=== PATIENT | male | born 1990 | race Asian ===

== ENCOUNTER 2021-10-29 21:50 | Emergency (ER) | payer OTHER, SELFPAY ==
--- NOTE | 2021-10-29 07:24 | ECG_ITS ---
Test Reason : CHEST PAIN Blood Pressure : / mmHG Vent. Rate : 107 BPM Atrial Rate : 107 BPM P-R Int : 118 ms QRS Dur : 074 ms QT Int : 306 ms P-R-T Axes : 055 041 036 degrees QTc Int : 408 ms Sinus tachycardia Otherwise normal ECG No previous ECGs available Referred By: Heri Skinner Electronically Signed By:Arslan Gottlieb
[2021-10-29 22:06] VITALS: BP 136/81; PULSE 110; RESP 20; TEMP 37.4; O2SAT 100; BMI 24.4
[2021-10-29 22:24] LABS: MANUAL DIFF FLAG NO
[2021-10-29 22:26] LABS: Basophils Percent Auto 0.2 % (0-2); Eosinophils Absolute Auto 0.2 X10*3/uL (0.0-0.4); Hematocrit 38.4 % (42.0-52.0); Hemoglobin 12.4 g/dl (14.0-18.0); Imm Gran Abs Auto 0.12 X10*3/uL (0.00-0.03); Imm Gran Pct Auto 0.7 % (0.0-0.4); Lymphocytes Absolute Auto 2.3 X10*3/uL (1.2-4.9); Lymphocytes Percent Auto 13.8 % (20-40); Mean Corpuscular HGB Conc 32.3 g/dl (31.0-36.0); Mean Corpuscular Hemoglobin 28.1 pg (27.0-33.0); Mean Corpuscular Volume 87.1 fL (80.0-98.0); Mean Platelet Volume 8.8 fL (9.4-12.4); Monocytes Absolute Auto 1.1 X10*3/uL (0.1-1.2); Monocytes Percent Auto 6.6 % (2-11); Neutrophils Absolute Auto 12.8 x10*3/uL (2.0-8.3); Neutrophils Percent Auto 77.7 % (45-73); Platelet Count 449 X10*3/uL (160-400); Red Blood Count 4.41 X10*6/uL (4.60-5.80); Red Cell Distribution Width 12.9 % (11.0-16.0); White Blood Count 16.5 X10*3/uL (4.8-10.8)
[2021-10-29 22:39] LABS: Anion Gap 14 (12-20); Blood Urea Nitrogen 11 mg/dL (9-16); Calcium 8.6 mg/dL (8.4-10.2); Carbon Dioxide 24 mmol/L (22-29); Chloride 99 mmol/L (96-108); Creatinine Clr Calc Pharmacy 153.3; Estimated Glomerular Filt Rate > 60; Glucose Random 106 mg/dL (60-115); Potassium 4.2 mmol/L (3.3-5.1); Sodium 133 mmol/L (135-145)
[2021-10-29 22:47] LABS: Troponin-I High Sensitivity < 3.5 ng/L (<3.5-35.0)
[2021-10-29 23:14] LABS: D Dimer High Sensitivity 1528 NG/ML
--- NOTE | 2021-10-29 23:34 | ED.GENADULT ---
HPI - General Adult General Chief complaint: General Medical Stated complaint: pain in chest and joints Time Seen by Provider: 10/29/21 23:34 Source: patient and family (Father) Mode of arrival: ambulatory Limitations: no limitations History of Present Illness HPI narrative: 31 years old male came in for evaluation of migratory joint pain starting an left knee to the right knee then alternate to the wrist and elbows, patient also felt left-sided chest pain since yesterday. Patient was seen at [facility] patient had CTA angio of the chest because elevated D-dimer and was negative for PE. Patient was discharged yesterday around oxycodone which he claimed is not relieving his pain. Related Data Previous Rx's Medication Instructions Recorded ibuprofen 800 mg tablet 800 mg PO Q8H PRN pain #30 tabs 10/29/21 prednisone 20 mg tablet 20 mg PO BID #8 tabs 10/29/21 Allergies Allergy/AdvReac Type Severity Reaction Status Date / Time No Known Allergies Allergy Verified 10/29/21 22:12 Review of Systems Review of Systems: All other systems are reviewed and are negative Constitutional: Reports as per HPI and Reports no additional constitutional complaints Eyes: Reports as per HPI and Reports no additional eye complaints Reports system reviewed and no additional complaints, except as documented Cardiovascular: Reports as per HPI and Reports no additional cardiovascular complaints Respiratory: Reports as per HPI and Reports no additional respiratory complaints Gastrointestinal: Reports as per HPI and Reports no additional gastrointestinal complaints Genitourinary: Reports no additional female genitourinary complaints Musculoskeletal: Reports no additional musculoskeletal complaints Skin/Breast: Reports system reviewed and no additional complaints, except as docu Psychiatric: Reports no additional psychiatric complaints Endocrine: Reports no additional endocrine complaints Hematologic/Lymphatic: Reports no additional hematologic/lymphatic complaints Allergic/Immunologic: Reports no additional allergic/immunologic complaints Reports system reviewed and no additional complaints, except as documented and Reports Abnormal speech present [facility] Social History Social History Advance Directives: No Advance Directives Information Provided: Yes Physical Exam ED Vital Signs: Vital Signs - 24 hr 10/29/21 22:06 Temperature 99.4 F Pulse Rate 110 H Respiratory Rate 20 Blood Pressure 136/81 Pulse Oximetry 100 Oxygen Delivery Method Room Air BMI result Body Mass Index 24.4 Vital signs have been reviewed as appeared to be correct. Blood pressure normal. Heart rate normal. Respiration rate normal. Temperature normal. Oxygen saturation normal. Appearance: Alert. Oriented X3. No acute distress. Head: Normal external exam. Normocephalic. Atraumatic. No Benjamin signs noted. No raccoon eyes noted Eyes: PERRLA. EOMI. Conjunctiva and sclera normal. Eyelids normal. ENT: TM's Normal. Pharynx normal. Uvula midline. Moist mucous membranes. No trismus noted. No drooling noted. No muffled voice noted. Neck: Normal inspection. Neck supple. FROM. No adenopathy. Thyroid Normal. No meningeal signs. No neck mass noted. CVS: Normal heart rate and rhythm. Heart sound normal. No murmurs noted. Pulses normal throughout. Respiratory: No respiratory distress. Painless inspiration. Breath sounds normal. No wheezes/rales/rhonchi noted. Chest nontender. No accessory muscle usage noted or decreased air movement noted. Abdomen: Soft and nontender. Bowel sounds normal in all 4 quadrants. No distention noted. No organomegaly noted. No visible injury noted. Back: No CVA tenderness. Full range of motion noted. Skin: Skin warm and dry. Normal skin color. Normal skin turgor. No rashes/lesions/lacerations noted. Extremities: No lower extremity edema. Extremities exhibit normal range of motion. Extremities nontender. Neuro: Oriented X 3. Cranial nerve exam: II-XII are grossly intact No motor deficit. No sensory deficit. Reflexes normal. Course Course Course Narrative: Assessment and plan. 31-year-old male came in for evaluation of chest pain and migratory joint pain. Was seen and evaluated at [facility] yesterday had CT angiogram of the chest due to D-dimer elevation showed no PE. EKG/troponin unremarkable. Joint pain is likely secondary to arthritis will start the patient on ibuprofen and short course of prednisone. Medical Decision Making Lab Data Lab results reviewed: Yes I reviewed the patient's lab results. Result diagrams: 10/29/21 22:18 10/29/21 22:18 Labs: Lab Results 10/29/21 10/29/21 10/29/21 Range/Units 22:18 22:18 22:18 WBC 16.5 H (4.8-10.8) X10*3/uL RBC 4.41 L (4.60-5.80) X10*6/uL Hgb 12.4 L (14.0-18.0) g/dl Hct 38.4 L (42.0-52.0) % MCV 87.1 (80.0-98.0) fL MCH 28.1 (27.0-33.0) pg MCHC 32.3 (31.0-36.0) g/dl RDW 12.9 (11.0-16.0) % Plt Count 449 H (160-400) X10*3/uL MPV 8.8 L (9.4-12.4) fL Immature Gran % (Auto) 0.7 H (0.0-0.4) % Neut % (Auto) 77.7 H (45-73) % Lymph % (Auto) 13.8 L (20-40) % [place] % (Auto) 6.6 (2-11) % Eos % (Auto) 1.0 (0-4) % Baso % (Auto) 0.2 (0-2) % Lymph # (Auto) 2.3 (1.2-4.9) X10*3/uL [place] # (Auto) 1.1 (0.1-1.2) X10*3/uL Eos # (Auto) 0.2 (0.0-0.4) X10*3/uL Baso # (Auto) 0.0 (0.0-0.2) X10*3/uL Abs Immat Gran (auto) 0.12 H (0.00-0.03) X10*3/uL Absolute Neuts (auto) 12.8 H (2.0-8.3) x10*3/uL Absolute Nucleated RBC 0.000 (0.0-0.012) X10*3/uL Nucleated RBC % (auto) 0.0 (0.0-0.2) /100WBC D-Dimer High Sensitivty 1528 NG/ML Sodium 133 L (135-145) mmol/L Potassium 4.2 (3.3-5.1) mmol/L Chloride 99 (96-108) mmol/L Carbon Dioxide 24 (22-29) mmol/L Anion Gap 14 (12-20) BUN 11 (9-16) mg/dL Creatinine 0.75 (0.5-1.4) mg/dL Estim Creat Clear Calc 153.3 Estimated GFR > 60 Random Glucose 106 (60-115) mg/dL Calcium 8.6 (8.4-10.2) mg/dL Troponin I High Sens (<3.5-35.0) ng/L 10/29/21 Range/Units 22:18 WBC (4.8-10.8) X10*3/uL RBC (4.60-5.80) X10*6/uL Hgb (14.0-18.0) g/dl Hct (42.0-52.0) % MCV (80.0-98.0) fL MCH (27.0-33.0) pg MCHC (31.0-36.0) g/dl RDW (11.0-16.0) % Plt Count (160-400) X10*3/uL MPV (9.4-12.4) fL Immature Gran % (Auto) (0.0-0.4) % Neut % (Auto) (45-73) % Lymph % (Auto) (20-40) % [place] % (Auto) (2-11) % Eos % (Auto) (0-4) % Baso % (Auto) (0-2) % Lymph # (Auto) (1.2-4.9) X10*3/uL [place] # (Auto) (0.1-1.2) X10*3/uL Eos # (Auto) (0.0-0.4) X10*3/uL Baso # (Auto) (0.0-0.2) X10*3/uL Abs Immat Gran (auto) (0.00-0.03) X10*3/uL Absolute Neuts (auto) (2.0-8.3) x10*3/uL Absolute Nucleated RBC (0.0-0.012) X10*3/uL Nucleated RBC % (auto) (0.0-0.2) /100WBC D-Dimer High Sensitivty NG/ML Sodium (135-145) mmol/L Potassium (3.3-5.1) mmol/L Chloride (96-108) mmol/L Carbon Dioxide (22-29) mmol/L Anion Gap (12-20) BUN (9-16) mg/dL Creatinine (0.5-1.4) mg/dL Estim Creat Clear Calc Estimated GFR Random Glucose (60-115) mg/dL Calcium (8.4-10.2) mg/dL Troponin I High Sens < 3.5 (<3.5-35.0) ng/L Discharge Plan Discharge Clinical Impression: Arthritis Patient Disposition: Home, Self-Care Instructions: Osteoarthritis (ED) Prescriptions: New ibuprofen 800 mg tablet 800 mg PO Q8H PRN (Reason: pain) Qty: 30 0RF prednisone 20 mg tablet 20 mg PO BID Qty: 8 0RF Referrals: Physician,Unknown J [Primary Care Provider] -
[2021-10-29 23:44] VITALS: BP 112/72; PULSE 108; RESP 18; TEMP 39.6; O2SAT 99
[2021-10-29] MEDS: predniSONE 20 MG TABLET 60 MG PO (23:48)
[2021-10-29] MEDS: Ibuprofen 800 MG TABLET PO (23:48)
[2021-10-30 00:05] VITALS: TEMP 38.2
== END 2021-10-30 00:12 | disposition home or self-care (01) ==
PROVIDERS: Emergency Provider Emergency Medicine
DX: R07.89 Other chest pain (principal); M17.0 Bilateral primary osteoarthritis of knee; Z79.899 Other long term (current) drug therapy
CPT/HCPCS: 36415; 80048; 84484; 85025; 85379; 93005; 99283; 99284

== ENCOUNTER 2024-10-25 14:23 | Outpatient (AMB) | payer OTHER, SELFPAY ==
--- NOTE | 2024-10-25 14:34 | A.OFFVIS_ITS ---
Intake Visit Reasons: Penile lesion/hematoma Intake Note: Patient is present for PENILE LESION/HEMATOMA Urology Medication:NONE Antibiotic Allergy:NONE Blood Thinner:NONE Airport Utility Worker Required: No Allergies No Known Allergies Allergy (Verified 10/25/24 14:35) HPI Comments Details: Holly Is a pleasant male of [place]. 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 Review of Systems Const Denies chills and Denies fever(s) Card Reports no additional complaints and Denies syncope Resp Denies cough GI Denies abdominal pain and Denies heartburn Reports as per HPI and Denies change in libido Neuro Denies syncope Psych Denies change in libido Endo Denies change in libido Physical Exam Const General: cooperative, healthy appearing, comfortable and no acute distress Orientation/consciousness: patient oriented x3 HEENT Face and sinus: Yes normal facial exam Mouth: moist mucous membranes Neck Neck: Yes normal visual inspection, Yes full ROM and Yes trachea midline Chest Chest palpation & inspection: normal inspection of the chest Resp Effort & Inspection: normal respiratory effort, able to speak in complete sentences and no respiratory distress GI Inspection: Yes normal to inspection Back/Spine/Pelvis Cervical Spine: normal cervical lordosis Thoracic/Lumbar Spine: thoracic and lumbar spine normal to inspection Skin General skin exam: no rashes or lesions noted Neuro General: patient oriented x3, gait normal, tone normal and moves all extremities Extrem General: Yes normal to inspection and Yes capillary refill normal Results AMB Urinalysis, Automated UA Leukoctes 0 Joan/uL Last Edit by SERENITY Raymond on 10/25/24 15:21 UA Nitrite Negative Last Edit by SERENITY Raymond on 10/25/24 15:21 UA Urobilinogen 0.2 mg/dL Last Edit by SERENITY Raymond on 10/25/24 15:2 1 UA Protein 0 mg/dL Last Edit by SERENITY Raymond on 10/25/24 15:21 UA pH 6.0 Last Edit by SERENITY Raymond on 10/25/24 15:21 UA Blood 10 Chidi/uL Last Edit by SERENITY Raymond on 10/25/24 15:21 UA Specific [place] 1.015 Last Edit by SERENITY Raymodn on 10/25/24 15: 21 UA Ketone Negative Last Edit by SERENITY Raymond on 10/25/24 15:21 UA Bilirubin 0 mg/dL Last Edit by SERENITY Raymond on 10/25/24 15:21 UA Glucose 0 mg/dL Last Edit by SERENITY Raymond on 10/25/24 15:21 Results Reviewed Results Reviewed: Laboratory Last Values Urine pH (Auto) 6.0 10/25/24 15:20 Specific [place] (Auto) 1.015 10/25/24 15:20 Urine Protein (Auto) 0 mg/dL 10/25/24 15:20 Glucose (UA)(Auto) 0 mg/dL 10/25/24 15:20 Urine Ketones (Auto) Negative 10/25/24 15:20 Urine Blood (Auto) 10 Chidi/uL 10/25/24 15:20 Urine Nitrite (Auto) Negative 10/25/24 15:20 Urine Bilirubin (Auto) 0 mg/dL 10/25/24 15:20 Urine Urobilinogen (Auto) 0.2 mg/dL 10/25/24 15:20 Leukocyte Esterase (Auto) 0 Joan/uL 10/25/24 15:20 Assessment & Plan Assessment & Plan (1) Balanitis: Code(s): N48.1 - Balanitis Category: Medical Plan Trial topical steroid Orders: Orders AMB Urinalysis Automated Today Z13.9 - Encounter for screening, unspecified Medications: New betamethasone dipropionate 0.05% Thin coat 2 times per day 1 appl topical BID 30 days 15 grams 0RF N48.1 - Balanitis, Q55.69 - Other congenital malformation of penis Patient Instructions: This note is constructed using voice recognition software. While every effort has been made to ensure accuracy paper novelty maker errors may have been included. Imaging studies, laboratory and physical exam results were discussed and reviewed in detail. No major barriers to patient understanding were identified. An opportunity to ask questions regarding the treatment plan was provided. All questions were answered. The patient expressed understanding and agreement with the above treatment plan. The patient is aware they should contact our office by phone for worsening of their current condition or the appearance of new urologic symptoms. Compliance is encouraged with any medications and followup testing that is ordered. It is a privilege to participate in the urologic care of your patient. If you have any questions or concerns regarding treatment for the above conditions, or other urologic issues, please do not hesitate to contact me. The office telephone contact is [phone]. Sincerely, Dr Lalo Singh MD, [facility] - Urology Compassionate Specialist Care for the Genitourinary System Coding Level of Care Code New Pt Level 4 (32962) Diagnoses Balanitis N48.1
--- OUTSIDE RECORDS SUMMARY | 2024-10-25 14:48 | XMS_ITS | Clinical Summary ---
Author Organization [facility] Address [address] [place] [address] Phone Care Team Providers Care [employer] Name Role Phone Caitlyn Gooden MD Primary Care Provider + Active Problems Problem Noted Date Diagnosed Date History of benign schwannoma 09/18/2024 Assessment & Plan (09/18/2024 8:52 PM EDT): Mr. Christian is a 44 y.o. male had a robotic resection of a posterior mediastinal mass with pathology consistent with a schwannoma in November 2021. The patient's most recent surveillance CT scan shows no evidence of recurrent mediastinal or paraspinal mass. He has no concerning pulmonary nodules or thoracic adenopathy. Will plan for his next surveillance chest CT to be in 1 year, August 2025. Will plan on seeing patient after that next scan. Encounters Date Type Department Care Team Description 09/19/2024 2:00 PM EDT Office Visit Thoracic Surgery - [place] [address] [place] [phone] Hollie Page PA History of benign schwannoma 08/30/2024 3:29 PM EDT - 08/30/2024 11:59 PM EDT Hospital Encounter [facility] CT Scan [address] [place] [address] History of benign schwannoma Discharge Disposition: Home or Self Care from Last 3 Months Surgical History Surgery Date Site/Laterality Comments OTHER SURGICAL HISTORY 12/21/2021 Left PROCEDURE: CT THRSC TOT PULM DCRTCTJ INTRAPLEURAL PNEUMONOLSS Medical History Medical History Date Comments Pleuritis DX:Pleuritis Mediastinal mass DX:Mediastinal mass Social History Tobacco Use Types Packs/Day Years Used Date Smoking Tobacco: Never Smokeless Tobacco: Never Alcohol Use Standard Drinks/Week Comments Not Currently 0 (1 standard drink = 0.6 oz pur e alcohol) Sex and Gender Information Value Date Recorded Sex Assigned at Not on file Legal Sex Male 2:43 AM EST Gender Identity Not on file Sexual Orientation Not on file Obstetrics History Last Filed Vital Signs Vital Sign Reading Time Taken Comments Blood Pressure 154/106 09/19/2024 2:04 PM EDT Pulse 109 09/19/2024 2:04 PM EDT Temperature 36.8 C (98.2 F) 09/19/2024 2:04 PM EDT Respiratory Rate 14 09/19/2024 2:04 PM EDT Oxygen Saturation 99% 09/19/2024 2:04 PM EDT Inhaled Oxygen Concentration - - Weight 89.1 kg (196 lb 8 oz) 09/19/2024 2:04 PM EDT Height 185.4 cm (6' 1 ) 09/19/2024 2:04 PM EDT Body Mass Index 25.93 09/19/2024 2:04 PM EDT Plan of Treatment Health Maintenance Due Date Last Done Comments Hepatitis B Vaccines (1 of 3 - 19+ 3-dose series) 05/08/2000 Cholesterol Screening (Lipid Panel) 04/03/2022 Depression Screening 04/03/2022 HIV Screening 04/03/2022 Social Influencers of Health Screening 04/03/2022 COVID-19 Vaccine (4 - 2023-2 5 season) 2023 06/29/2021, 10/15/2020, 09/19/2020 Influenza Vaccine (Season Ended) 2024 DTaP,Tdap,and Td Vaccines (2 - Td or Tdap) 09/10/2034 09/10/2024 Hepatitis C Screening Completed 12/07/2021 HIB Vaccines Aged Out No longer eligi ble based on patient's age to complete this topic HPV Vaccines Aged Out No longer eligi ble based on patient's age to complete this topic Hepatitis A Vaccines Aged Out No long er eligible based on patient's age to complete this topic IPV Vaccines Aged Out No longer eligi ble based on patient's age to complete this topic MMR Vaccines Aged Out No longer eligi ble based on patient's age to complete this topic Meningococcal ACWY Vaccine Aged Out N o longer eligible based on patient's age to complete this topic Meningococcal B Vaccine Aged Out No l onger eligible based on patient's age to complete this topic Pneumococcal Vaccine: Pediatrics (0 to 5 Years) and At-Risk Patients (6 to 64 Years) Aged Out No longer eligible b ased on patient's age to complete this topic RSV Immunization Patients Under 20 months Aged Out No longer eligible b ased on patient's age to complete this topic Varicella Vaccines Aged Out No longer eligible based on patient's age to complete this topic Procedures Procedure Name Priority Date/Time Associated Diagnosis Comments CT CHEST WO CONTRAST Routine 08/30/2024 3:38 PM EDT History of benign schwannoma from Last 3 Months Results * CT Chest wo Contrast (08/30/2024 3:38 PM EDT) Anatomical Region Laterality Modality Body Computed Tomogra phy 09/02/2024 3:48 PM EDT Impressions 09/02/2024 3:56 PM EDT Impression: 1. No active pulmonary process. 2. No recurrent mediastinal mass identified. Telerad SHARONDA ([id number]) -------- FINAL REPORT -------- Dictated By: Cassidy Diaz Dictated Date: 09/02/2024 15:48 ET Assigned Physician: Cassidy Diaz Reviewed and Electronically Signed By: Cassidy Diaz Signed Date: 09/02/2024 15:56 ET Workstation ID: [id number] Transcribed By: Self Edit Transcribed Date: 09/02/2024 15:48 ET Narrative 09/02/2024 3:56 PM EDT History: Benign schwannoma (posterior mediastinum), status post robotic resection in November,. Surveillance imaging. Comparison: 09/19/23, 10/28/21 Technique: Helical volumetric imaging of the thorax was performed, using low dose technique, without IV contrast. DLP: 166.52 mGy/cm Nagier Iterative reconstruction technique Findings: The trachea and central bronchial tree remains patent. A few tiny, homogeneously calcified nodules are scattered bilaterally, consistent with healed granulomas. The lungs are otherwise clear. No pleural or pericardial effusions are seen. The heart and unopacified great vessels are unremarkable. No recurrent posterior mediastinal mass is seen. There is no developing thoracic lymphadenopathy. The included portions of the thyroid gland show no suspicious nodule. A small portion of the upper abdomen included on the lowest images through the thorax is without significant abnormality. The regional skeleton is unremarkable. Procedure Note Cassidy Diaz MD - 09/02/2024 History: Benign schwannoma (posterior mediastinum), status post roboticresection in November,. Surveillance imaging. Comparison: 09/19/23, 10/28/21 Technique: Helical volumetric imaging of the thorax was performed, usinglow dose technique, without IV contrast. DLP: 166.52 mGy/cm Nagier Iterative reconstruction technique Findings: The trachea and central bronchial tree remains patent. A few tiny,homogeneously calcified nodules are scattered bilaterally, consistent withhealed granulomas. The lungs are otherwise clear. No pleural or pericardial effusions are seen. The heart and unopacified great vessels are unremarkable. No recurrentposterior mediastinal mass is seen. There is no developing thoraciclymphadenopathy. The included portions of the thyroid gland show no suspicious nodule. A small portion of the upper abdomen included on the lowest images throughthe thorax is without significant abnormality. The regional skeleton is unremarkable. IMPRESSION: Impression: 1. No active pulmonary process. 2. No recurrent mediastinal mass identified. Telerad SHARONDA ([id number]) -------- FINAL REPORT -------- Dictated By: Cassidy Diaz Dictated Date: 09/02/2024 15:48 ET Assigned Physician: Cassidy Diaz Reviewed and Electronically Signed By: Cassidy Diaz Signed Date: 09/02/2024 15:56 ET Workstation ID: [id number] Transcribed By: Self Edit Transcribed Date: 09/02/2024 15:48 ET us Hollie MCDONOUGH IMG CT PROCEDURES Final Resul t from Last 3 Months Insurance [facility] Care Teams Dean [employer] Relationship Specialty Start Date End Date Caitlyn Gooden MD [address] [place] [address] PCP - General Internal Medicine 11/08/21
== END 2024-10-25 15:04 | disposition home or self-care (01) ==
LOC: HO.HUSH 14:24
PROVIDERS: Visit Provider Urology
DX: N48.1 Balanitis (principal); Z13.9 Encounter for screening, unspecified
CPT/HCPCS: 99204

== ENCOUNTER → 2024-10-25 14:23 | Outpatient (BNVA) | payer OTHER, SELFPAY | PROVIDERS: Visit Provider Urology | DX: N48.1 Balanitis (principal) | CPT/HCPCS: 81003; 99202 ==

== ENCOUNTER 2024-11-11 15:07 | Outpatient (REF) | payer OTHER, SELFPAY ==
--- NOTE | ~2024-11-11 | US_ITS ---
CLINICAL HISTORY: DISORDERS OD PENIS Ultrasound of the penis Comparison: None provided Findings: No focal sonographic abnormalities are identified. Question subcutaneous edema near head of penis. Impression: Question subcutaneous edema near head of penis This document has been electronically signed by: Cordell Agosto MD on 11/12/2024 22:21:29
--- OUTSIDE RECORDS SUMMARY | 2024-11-11 16:23 | XMS_ITS | Clinical Summary ---
Author Organization [facility] Address [address] [place] [address] Phone Care Team Providers Care Drilling Supervisor Name Role Phone Caitlyn Gooden MD Primary [...] PM EDT Office Visit Thoracic Surgery - [place] [address] [place] [phone] Hollie Page PA History of benign schwannoma 08/30/2024 3:29 PM EDT - 08/30/2024 11:59 PM EDT Hospital Encounter [facility] CT Scan [address] [place] [address] History of benign schwannoma Discharge Disposition: Home or Self Care from Last 3 Months Surgical History Surgery Date Site/Laterality Comments OTHER SURGICAL HISTORY 12/21/2021 Left PROCEDURE: [place] THRSC TOT PULM DCRTCTJ INTRAPLEURAL PNEUMONOLSS Medical [...] season) 2023 06/29/2021, 10/15/2020, 09/19/2020 Influenza Vaccine (#1) 2024 DTaP,Tdap,and Td Vaccines (2 - Td [...] 5 Years) and At-Risk Patients (6 to 49 Years) Aged Out No longer eligible b [...] No recurrent mediastinal mass identified. Telerad SHARONDA ([id number]) -------- FINAL REPORT -------- Dictated By: Cassidy Diaz Dictated Date: 09/02/2024 15:48 ET Assigned Physician: Cassidy Diaz Reviewed and Electronically Signed By: Cassidy Diaz Signed Date: 09/02/2024 15:56 ET Workstation ID: [id number] Transcribed By: Self Edit Transcribed Date: 09/02/2024 15:48 ET Narrative 09/02/2024 3:56 PM EDT History: Benign schwannoma (posterior mediastinum), status post robotic resection in November,. Surveillance imaging. Comparison: 09/19/23, 10/28/21 Technique: Helical volumetric imaging of the thorax was performed, using low dose technique, without IV contrast. DLP: 166.52 mGy/cm Hoot.Meer Iterative reconstruction technique Findings: The trachea and [...] technique, without IV contrast. DLP: 166.52 mGy/cm Hoot.Meer Iterative reconstruction technique Findings: The trachea and [...] No recurrent mediastinal mass identified. Telerad SHARONDA ([id number]) -------- FINAL REPORT -------- Dictated By: Cassidy Diaz Dictated Date: 09/02/2024 15:48 ET Assigned Physician: Cassidy Diaz Reviewed and Electronically Signed By: Cassidy Diaz Signed Date: 09/02/2024 15:56 ET Workstation ID: [id number] Transcribed By: Self Edit Transcribed Date: 09/02/2024 15:48 ET us Hollie MCDONOUGH IMG CT PROCEDURES Final Resul t from Last 3 Months Insurance [facility] [place] [address] Care Teams Drilling Supervisor Relationship Specialty Start Date End Date Caitlyn Gooden MD [address] [place] [address] PCP - General Internal Medicine 11/08/21
== END 2024-11-11 15:08 | disposition home or self-care (01) ==
LOC: HO.US 15:07
PROVIDERS: PCP Family Medicine; Visit Provider Registered Nurse
DX: N48.89 Other specified disorders of penis (principal)
CPT/HCPCS: 76857

== ENCOUNTER → 2024-11-11 15:22 | Outpatient (BNV) | payer OTHER, SELFPAY | PROVIDERS: PCP Family Medicine; Visit Provider Radiology Diagnostic Radiology | DX: N48.89 Other specified disorders of penis (principal) | CPT/HCPCS: 76857 ==

== ENCOUNTER 2024-12-25 14:23 | Outpatient (AMB) | payer OTHER, SELFPAY ==
--- NOTE | 2024-12-25 14:40 | MHC.OFFVIS ---
Intake Visit Reasons: 2m follow up Intake Note: Patient is present for 2 mo follow up Urology Medication:betamethasone Antibiotic Allergy:NONE Blood Thinner:NONE Legal Researcher Required: No Accompanied by: Self / Same As Patient Allergies No Known Allergies Allergy (Verified 12/25/24 14:40) HPI Comments Details: Holly Is a pleasant male of [place]. He is seen for the following urologic conditions - balanitis Almost complete resolution with steroid He is happy with current follow-up Minimizing use of soap P.r.n. Review of Systems Const Denies chills and Denies fever(s) Card Reports no additional complaints and Denies syncope Resp Denies cough GI Denies abdominal pain and Denies heartburn Reports as per HPI and Denies change in libido Neuro Denies syncope Psych Denies change in libido Endo Denies change in libido Physical Exam Const General: cooperative, healthy appearing, comfortable and no acute distress Orientation/consciousness: patient oriented x3 HEENT Face and sinus: Yes normal facial exam Mouth: moist mucous membranes Neck Neck: Yes normal visual inspection, Yes full ROM and Yes trachea midline Chest Chest palpation & inspection: normal inspection of the chest Resp Effort & Inspection: normal respiratory effort, able to speak in complete sentences and no respiratory distress GI Inspection: Yes normal to inspection Back/Spine/Pelvis Cervical Spine: normal cervical lordosis Thoracic/Lumbar Spine: thoracic and lumbar spine normal to inspection Skin General skin exam: no rashes or lesions noted Neuro General: patient oriented x3, gait normal, tone normal and moves all extremities Extrem General: Yes normal to inspection and Yes capillary refill normal Assessment & Plan Assessment & Plan (1) Balanitis: Code(s): N48.1 - Balanitis Category: Medical Plan P.r.n. follow-up Patient Instructions: This note is constructed using voice recognition software. While every effort has been made to ensure accuracy supervisor vegetable farming errors may have been included. Imaging studies, laboratory and physical exam results were discussed and reviewed in detail. No major barriers to patient understanding were identified. An opportunity to ask questions regarding the treatment plan was provided. All questions were answered. The patient expressed understanding and agreement with the above treatment plan. The patient is aware they should contact our office by phone for worsening of their current condition or the appearance of new urologic symptoms. Compliance is encouraged with any medications and followup testing that is ordered. It is a privilege to participate in the urologic care of your patient. If you have any questions or concerns regarding treatment for the above conditions, or other urologic issues, please do not hesitate to contact me. The office telephone contact is [phone]. Sincerely, Dr Lalo Singh MD, [facility] - Urology Compassionate Specialist Care for the Genitourinary System Coding Level of Care Code Est Pt Level 3 (24270) Diagnoses Balanitis N48.1
--- OUTSIDE RECORDS SUMMARY | 2024-12-25 15:27 | XMS_ITS | Clinical Summary ---
Author Organization [facility] Address [address] [facility] [address] [place] [phone] Phone Care Team Providers Care Paper Machine Backtender Name Role Phone Caitlyn Gooden MD Primary Care Provider + Allergies No known active allergies Medications traZODone (DESYREL) 50 MG tablet Take 1 tablet (50 mg total) by mouth nightly at bedtime for 14 days. 14 tablet 03/17/2021 Active ibuprofen (ADVIL,MOTRIN) 800 MG tablet Take 800 mg by mouth every 6 (six) hours as needed for pain (specific location in comments). Active benzonatate (TESSALON) 100 MG capsule Take 1 capsule (100 mg total) by mouth 3 (three) times a day as needed for cough. 20 capsule 05/02/2024 Active Active Problems No known active problems Immunizations Immunization Administration Dates Next Due COVID-19 (Pre-02/20) Pfizer Vaccine, mRNA, PF 06/29/2021,10/15/2020,09/19/2020 Social History Tobacco Use Types Packs/Day Years Used Date Smoking Tobacco: Never Smokeless Tobacco: Never Alcohol Use Standard Drinks/Week Comments Not Currently 0 (1 standard drink = 0.6 oz pur e alcohol) Education Answer Date Recorded Are you interested in more education? Not on susan e 08/27/2022 Are you concerned about learning? Not on file 08/27/2022 No 08/27/2022 No 08/27/2022 Digital Access Answer Date Recorded No 09/25/2022 No 09/25/2022 Reliable internet access at home? Not on file 09/25/2022 Device with a working camera? Not on file Intimate Partner Violence Answer Date R ecorded Are you denied basic needs s uch as food, clothing, or medical care? No 06/25/2024 In the past 12 months have y ou been in a relationship with a person who hurts, threatens, or tries to control you? No 06/25/2024 Are you denied basic needs s uch as food, clothing, or medical care? No 06/25/2024 In the past 12 months have y ou been in a relationship with a person who hurts, threatens, or tries to control you? No 06/25/2024 Sex and Gender Information Value Date Recorded Sex Assigned at Male 08/11/2021 5:28 PM EDT Legal Sex Male 3:13 PM EST Gender Identity Male 08/11/2021 5:28 PM EDT Sexual Orientation Straight 08/11/2021 5: 28 PM EDT Last Filed Vital Signs Vital Sign Reading Time Taken Comments Blood Pressure 124/85 06/25/2024 10:48 PM EST Pulse 92 06/25/2024 10:48 PM EST Temperature 37.4 C (99.3 F) 06/25/2024 10:48 PM EST Respiratory Rate 20 06/25/2024 10:48 PM EST Oxygen Saturation 97% 06/25/2024 10:48 PM EST Inhaled Oxygen Concentration - - Weight 87.1 kg (192 lb) 06/25/2024 5:47 PM EST Height 180.3 cm (5' 11 ) 06/25/2024 5:47 PM EST Body Mass Index 26.78 06/25/2024 5:47 PM EST Plan of Treatment Health Maintenance Due Date Last Done Comments Adult Td,Tdap Booster 05/08/1981 LIPID PANEL 05/08/1981 DEPRESSION SCREENING 05/08/1993 HIV ONE-TIME SCREENING (18-6 5 YEARS) 05/08/1999 COVID-19 VACCINE (2023-2 5 season) 2023 06/29/2021, 10/15/2020, 09/19/2020 SCREENING FOR DIABETES 05/02/2027 05/02/2024 HEPATITIS C SCREENING Completed 12/07/2021 SMOKING STATUS SCREENING (On ce After 26 Yrs) Completed 05/02/2024 HEPATITIS A VACCINES Aged Out No long er eligible based on patient's age to complete this topic HIB VACCINES Aged Out No longer eligi ble based on patient's age to complete this topic MENINGOCOCCAL VACCINES (ACWY) Aged Out No longer eligible based on patient's age to complete this topic MENINGOCOCCAL VACCINES (B) Aged Out N o longer eligible based on patient's age to complete this topic PNEUMOCOCCAL VACCINES (0-49 years) Aged Out No longer eligible b ased on patient's age to complete this topic Medical Devices Not on file Procedures Procedure Name Priority Date/Time Associated Diagnosis Comments HEPATITIS C ANTIBODY, QUALITATIVE Routine 12/07/2021 1:39 PM EDT Need for hepatitis C screening test from Last 3 Months or Most Recently Relevant to Health Maintenance Results * Hepatitis C antibody, qualitative (12/07/2021 1:39 PM EDT) HCV NON-REACTIV E NON-REACTI VE [facility] Blood 12/07/2021 1:39 PM EDT 12/07/2021 1:43 PM EDT us Jeff Siddiqui MD LAB BLOOD ORDERABLES Fi nal Result Performing Organization Address City/State/[facility] Co de Phone Number [facility] [address] [place] [address] from Last 3 Months or Most Recently Relevant to Health Maintenance Insurance #[id number] [place] [address] [facility] NON NSPG PCP [employer] NON NSPG PCP [employer] [address] [address] NON NSPG PCP [facility] [facility] NON NSPG PCP S[employer] NON NSPG PCP [facility] [employer] [address] [place] [phone] [place] [address] NON NSPG PCP [employer] [address] [place] [id number] [place] [address] [id number] [place] [phone] Care Teams Paper Machine Backtender Relationship Specialty Start Date End Date Caitlyn Gooden MD [address] [place] [phone] [email or web address] PCP - General Family Medicine 11/12/21 Additional Source Comments The information contained in this document represents components of the legal health record. It is not the complete legal health record.[facility]
--- OUTSIDE RECORDS SUMMARY | 2024-12-25 15:27 | XMS_ITS | Encounter Summary ---
Author Organization [facility] Address [address] [facility] [address] [place] [phone] Phone Care Team Providers Care Client Manager Name Role Phone Pcp, Unknown Primary Care Provider Caitlyn Gonzalez MD Primary Care Provider + Encounter Details Date Type Department Care Team (Late st Contact Info) Description 11/09/2021 Procedure Pass [facility] [address] [place] [address] Social History Tobacco Use Types Packs/Day Years [...] Orientation Straight 08/11/2021 5: 28 PM EDT documented as of this encounter Plan of Treatment Not on file documented as of this encounter Visit Diagnoses Not on filedocumented in this encounter Additional Health Concerns Infection Onset Date Last Indicated Resolved Time CoV-Risk Comment:Covid neg 11/08/2021 11/08/2021 11/09/2021 9:03 AM E DT CoV-Risk 10/21/2022 10/21/2022 11/01/2022 1:22 AM EDT CoV-Risk 08/29/2023 08/29/2023 09/09/2023 1:22 AM EDT Influenza A 08/29/2023 08/29/2023 09/05/2023 1:22 AM EDT CoV-Risk 05/02/2024 05/02/2024 05/13/2024 1:24 AM EST CoV-Risk 06/25/2024 06/25/2024 07/06/2024 1:22 AM EST documented as of this encounter Care Teams Client Manager Relationship Specialty Start Date End Date Pcp, Unknown PCP - General 03/17/21 11/11/21 Caitlyn Gooden MD [address] [place] [phone] [email or web address] PCP - General Family Medicine 11/12/21 documented as of this encounter Additional Source Comments The information contained in this document represents components of the legal health record. It is not the complete legal health record.[facility]
--- OUTSIDE RECORDS SUMMARY | 2024-12-25 15:27 | XMS_ITS | Encounter Summary ---
Author Organization [facility] Address [address] [facility] [address] [place] [phone] Phone Care Team Providers Care Mold Mover Name Role Phone Pcp, Unknown Primary Care Provider Caitlyn Gonzalez MD Primary Care Provider + Encounter Details Date Type Department Care Team (Late st Contact Info) Description 10/27/2021 Procedure Pass [facility], Ct Scan - [address] [address] Social History Tobacco Use Types Packs/Day Years [...] PM EDT documented as of this encounter Functional Status * Calculated C-SSRS Risk Score (Lifetime/Recent) Answer Date of Assessment Author No Risk Indicated 10/27/2021 8:48 PM EDT Annita Looney RN * [place] Suicide Severity Rating Scale (Screener/Recent Self-Report) Question Answer Date of Assessment Author 1. Wish to be (Past 1 Month) No 10/27/2021 8:48 PM EDT Annita Looney RN 2. Non-Specific Active Suicidal Thoughts (Past 1 Month) No 10/27/2021 8:48 PM EDT Annita Looney RN 6. Suicidal Behavior (Lifetime) No 10/27/2021 8:48 PM EDT Annita Looney RN documented as of this encounter Plan of Treatment Not on file documented as of this encounter Visit Diagnoses Not on filedocumented in this encounter Additional Health Concerns Infection Onset Date Last Indicated Resolved Time CoV-Risk 10/24/2021 10/24/2021 11/04/2021 1:23 AM EDT CoV-Risk Comment:Covid neg 11/08/2021 11/08/2021 11/09/2021 9:03 AM E DT CoV-Risk 10/21/2022 10/21/2022 11/01/2022 1:22 AM EDT CoV-Risk 08/29/2023 08/29/2023 09/09/2023 1:22 AM EDT Influenza A 08/29/2023 08/29/2023 09/05/2023 1:22 AM EDT CoV-Risk 05/02/2024 05/02/2024 05/13/2024 1:24 AM EST CoV-Risk 06/25/2024 06/25/2024 07/06/2024 1:22 AM EST documented as of this encounter Care Teams Mold Mover Relationship Specialty Start Date End Date Pcp, Unknown PCP - General 03/17/21 11/11/21 Caitlyn Gooden MD [address] [place] [phone] [email or web address] PCP - General Family Medicine 11/12/21 documented as of this encounter Additional Source Comments The information contained in this document represents components of the legal health record. It is not the complete legal health record.[facility]
--- OUTSIDE RECORDS SUMMARY | 2024-12-25 15:27 | XMS_ITS | Clinical Summary ---
Author Organization [facility] Address [address] [place] [address] Phone Care Team Providers Care Irrigation Laborer Name Role Phone Caitlyn Gooden MD Primary [...] on seeing patient after that next scan. Surgical History Surgery Date Site/Laterality Comments OTHER SURGICAL HISTORY 12/21/2021 Left PROCEDURE: CO THRSC TOT PULM DCRTCTJ INTRAPLEURAL PNEUMONOLSS Medical [...] series) 05/08/2000 Cholesterol Screening (Lipid Panel) 04/03/2022 HIV Screening 04/03/2022 Social Influencers of Health Screening 04/03/2022 COVID-19 Vaccine (4 - 2023-2 5 season) 2023 06/29/2021, 10/15/2020, 09/19/2020 Depression Screening 05/01/2024 Influenza Vaccine (#1) 2024 DTaP,Tdap,and Td Vaccines [...] on patient's age to complete this topic Insurance [employer] PLAN Care Teams Irrigation Laborer Relationship Specialty Start Date End Date Caitlyn Gooden MD [address] [place] [phone] PCP - General Internal Medicine 11/08/21
--- OUTSIDE RECORDS SUMMARY | 2024-12-25 15:27 | XMS_ITS | Encounter Summary ---
Author Organization [facility] Address [address] [facility] [address] [place] [phone] Phone Care Team Providers Care Archivist Economic History Name Role Phone Pcp, Unknown Primary Care Provider Caitlyn Gonzalez MD Primary Care Provider + Encounter Details Date Type Department Care Team (Late st Contact Info) Description 11/09/2021 Procedure Pass [facility], Ct Scan - [address] [address] Social History Tobacco Use Types Packs/Day Years [...] documented as of this encounter Care Teams Archivist Economic History Relationship Specialty Start Date End Date Pcp, Unknown PCP - General 03/17/21 11/11/21 Caitlyn Gooden MD [address] [place] [phone] [email or web address] PCP - General Family Medicine 11/12/21 documented as of this encounter Additional Source Comments The information contained in this document represents components of the legal health record. It is not the complete legal health record.[facility]
--- OUTSIDE RECORDS SUMMARY | 2024-12-25 15:27 | XMS_ITS | Encounter Summary ---
Author Organization [facility] Address [address] [facility] [address] [place] [phone] Phone Care Team Providers Care Rn Transport Name Role Phone Pcp, Unknown Primary Care Provider Caitlyn Gonzalez MD Primary Care Provider + Encounter Details Date Type Department Care Team (Late st Contact Info) Description 11/09/2021 Procedure Pass [facility] [address] [place] [address] Social History Tobacco Use Types Packs/Day Years [...] documented as of this encounter Care Teams Rn Transport Relationship Specialty Start Date End Date Pcp, Unknown PCP - General 03/17/21 11/11/21 Caitlyn Gooden MD [address] [place] [phone] [email or web address] PCP - General Family Medicine 11/12/21 documented as of this encounter Additional Source Comments The information contained in this document represents components of the legal health record. It is not the complete legal health record.[facility]
== END 2024-12-25 15:09 | disposition home or self-care (01) ==
LOC: HO.HUSH 14:24
PROVIDERS: Visit Provider Urology
DX: N48.1 Balanitis (principal)
CPT/HCPCS: 99213

== ENCOUNTER → 2024-12-25 14:23 | Outpatient (BNVA) | payer OTHER, SELFPAY | PROVIDERS: Visit Provider Urology | DX: N48.1 Balanitis (principal) | CPT/HCPCS: 99212 ==